=== PATIENT | male | born 1975 | race Caucasian/White ===

== ENCOUNTER 2019-09-27 09:58 | Emergency (ER) | payer BC ==
--- NOTE | 2019-09-27 10:13 | ED Physician Documentation ---
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 denies: numbness, tingling Exacerbated By: walking, movement Relieved By: rest, other (he has had no ice ) Associated Symptoms: denies: chest pain, shortness of breath, rapid heart rate, fainting - ROS CONST: no problems MS/SKIN/LYMPH: none CVS/RESP: none GI/: none EYES/ENT: none NERUO/PSYCH: denies: headache - PAST HX Past History: other (tendonititis in foot has presented the exact same way ) PE Risk Factors: none Immunizations: UTD Allergies/Adverse Reactions: Allergies Allergy/AdvReac Type Severity Reaction Status Date / Time No Known Allergies Allergy Verified 09/27/19 10:14 Home Medications: Ambulatory Orders Medication Instructions Recorded NK 09/27/19 - SOCIAL HX Smoking History: non-smoker Alcohol Use: none Drug Use: none - FAMILY HX Family History: none - VITAL SIGNS Vital Signs: Vital Signs Temp Pulse Resp BP Pulse Ox 98.3 F 79 16 130/83 94 09/27/19 11:03 09/27/19 11:03 09/27/19 11:03 09/27/19 11:03 09/27/19 11:03 - REVIEWED ASSESSMENTS Nursing Assessment Reviewed: Yes Vitals Reviewed: Yes ED Results Lab/Radiology - Orders Orders: ED Orders Category Date Time Status Crutches 1T Care 09/27/19 10:53 Active FOOT 3 VIEWS OR MORE [RAD] Stat Exams 09/27/19 Completed Ketorolac Tromethamine [Toradol] Med 09/27/19 10:24 Discontinued 60 mg IM NOW ONE Lower Extremity Problem - EXAM General Appearance: no distress Foot: left foot: pain, soft tissue tenderness, swelling, other (no bruise noted. Pulses + cap refill+ FROM ) Neuro/Tendon: normal sensation, normal motor functions EENT: eye inspection normal, ENT inspection normal, pharynx normal, no signs of dehydration RESPIRATORY: no resp distress, chest non-tender, breath sounds normal CVS: reg rate & rhythm, heart sounds normal JOINT: joints nml, nml ROM VASCULAR: no vascular compromise NEURO/PSYCH: oriented X3, CN's nml as tested SKIN: warm/dry BACK: normal inspection Discharge Clincal Impression: Left foot pain Referrals: Primary Doctor,No [Primary Care Provider] - 2 Days Comments: 1. Naproxen 500 mg take 1 by mouth every 12 hours as needed for pain 2. Medrol dose pack - as directed 3. Ice/elevate as needed for comfort 4. Follow up with PCP in 2-4 days 5. Return to ER for any increased concerns Condition: Stable Disposition: 01 HOME, SELF-CARE Decision to Admit: NO Date of Decison to Admit: 09/27/19 Decision Time: 10:45
[2019-09-27] MEDS: KETOROLAC TROMETHAMINE 60 MG/2 ML VIAL IM ONE (10:35)
--- NOTE | 2019-09-27 10:37 | Diagnostic Imaging Report ---
PATIENT MR#: [id number] PATIENT PATIENT NAME: DIANE PHILLIPS DATE OF : 1975 REFERRING PHYSICIAN: Juanita Barrett EXAM DATE: 09/27/2019 ACCESSION NUMBER: [id number] EXAM DESCRIPTION: FOOT 3 VIEWS OR MORE ADDENDUM: Impression: No acute osseous process. Examination: Plain film left foot History: LEFT FOOT, PAIN, SWELLING IN LEFT FOOT X2-3 DAYS, Findings: 3 views of the left foot demonstrates normal cortical margins. No fracture or dislocation. No soft tissue swelling. No joint effusion. Impression: No acute osseous process. The wall of the Read by: Dr. Ricardo Silverio Transcribed by: Transcribed Date: Electronically signed by: Dr. Ricardo Silverio Date signed: 09/27/2019 10:47:54 AM
[2019-09-27 11:05] VITALS: BP 130/83
== END 2019-09-27 11:00 | disposition home or self-care (01) ==
LOC: ED 09:58
DX: M79.672 Pain in left foot (principal)
CPT/HCPCS: 73630; 96372; 99282; 99284; J1885